=== PATIENT | male | born 1950 | race African-American/Black ===

== ENCOUNTER 2023-03-25 13:03 | Emergency (ER) | payer MEDICARE, SELFPAY ==
[2023-03-25 13:06] VITALS: BP 149/105; PULSE 68; RESP 14; TEMP 36.1; O2SAT 100
--- NOTE | 2023-03-25 13:21 | RAD_ITS ---
HISTORY: FALL. TECHNIQUE: XR Knee Complete 4 Views or More. COMPARISON: None. FINDINGS: BONES : No acute fracture identified. Old fracture of the proximal fibular diaphysis. JOINTS: No dislocation. Mild degenerative change. SOFT TISSUES: Mild soft tissue swelling. RAD/Knee 3 Views IMPRESSION: No acute fracture or dislocation identified in the left knee. Old fracture of the proximal fibula. Electronically Signed: Jessica Swanson MD at 14:01 EST ,
--- NOTE | 2023-03-25 15:01 | ED.VIS.LOWEX ---
HPI History of Present Illness Chief Complaint: Lower Extremity Injury Narrative Narrative: 72-year-old male presents with injury to his left knee that he sustained earlier today, prior to arrival. He states that he was inside and slipped on hardwood floor, trying to shrimp picker his dog. While he fell on his buttocks, his left leg went out towards the left. He twisted his left knee. He denies hitting his head or loss of consciousness. He now has pain on the medial aspect of his left knee. He denies other injury. He has been using his rollator to help him ambulate. [facility] Medical History Diabetes Allergy/AdvReac Type Severity Reaction Status Date / Time aspartame Allergy Mild PT UNSURE Verified 03/25/23 13:05 OF REACTION clonidine Allergy Mild LETHARGIC Verified 03/25/23 13:05 codeine AdvReac Mild Itching Verified 03/25/23 13:05 Social History Smoking Status: Unknown if ever smoked ROS ROS ED ROS Narrative Constitutional: No fever, no chills. HEENT: No sore throat. No neck pain. No loss of vision. No rhinorrhea. Cardiovascular: No chest pain. No palpitations. No pedal edema. Respiratory: No cough, no shortness of breath. Abdominal: No abdominal pain. No nausea. No vomiting. Genitourinary: No dysuria. No hematuria. Musculoskeletal: No myalgias. Left medial knee pain. Neurologic: No headaches. No dizziness. No lightheadedness. Skin: No rash. No change in color. Psychiatric: No depression. No anxiety. EXAM Physical Exam Narrative Exam Narrative: Afebrile. Vital signs noted. HEENT: Normocephalic. Atraumatic. PERRL, EOMI. Neck soft and supple. No point tenderness or step off. Cardiovascular: Regular rate and rhythm. No murmurs, rubs, or gallops appreciated. Respiratory: No tachypnea. Lungs clear to auscultation bilaterally. Gastrointestinal: Abdomen soft, nontender, with normoactive bowel sounds. No rebound or guarding. Neurological: Awake. Alert. Nonfocal, nonlateralizing. Skin: No rash. Normal color. No pallor. Musculoskeletal: No pedal edema. Full range of motion extremities. Extension left knee intact. Pain with external rotation and mild tenderness to palpation left medial meniscal line. Flexion extension of knee intact. Palpable dorsalis pedis pulse, left. EHL intact, left. Const Vital Signs: 03/25/23 13:06 Temperature 97.0 F L Temperature Source Temporal Pulse Rate 68 Respiratory Rate 14 Blood Pressure 149/105 H Blood Pressure Mean 119 Pulse Ox 100 Oxygen Delivery Method Room Air MDM MDM MDM Narrative Medical decision making narrative: Service for fracture of the tibial plateau versus ligamentous knee sprain. Also the differential is medial meniscal tear/internal derangement of left knee. RN ordered x-ray of the knee and 3 views was obtained and interpreted by myself independently and I see no evidence of effusion or fracture, no dislocation. There is a fibular head fracture noted on examination and review of the x-ray. I reviewed the radiology report which confirms my independent interpretation. As the patient has no evidence of fracture in the area where he is most tender, medially, I do feel that he can be placed in an Inderjit wrap and continue use of his rollator. He will take [id number] analgesics as needed. He was referred to orthopedics. In regard to his old fracture, he states he had a fall 2 years ago, and was having foot pain at that time. Return instructions to the emergency department were reviewed. Disposition is discharged home in stable condition. History & Record Review Discussion w/independent historian: Patient Radiography Diagnostic Testing: Clinical Impression(s) from Imaging Studies Knee X-Ray 03/25/23 13:21 IMPRESSION: No acute fracture or dislocation identified in the left knee. Old fracture of the proximal fibula. Electronically Signed: Jessica Swanson MD at 14:01 EST , Discharge Plan Triage Chief Complaint: Lower Extremity Injury ED Provider: Etienne Argueta Dx/Rx/DC Orders Clinical Impression: Left knee sprain, Fall Instructions: ED Mechanical Fall, ED Knee Sprain Primary Care Provider: Care Physician,No Primary Referrals: Pankaj Jerome MD [Med Staff - Active Staff] - 1 Week if not improving Care Physician,No Primary [Primary Care Provider] - Activity Restrictions/Additional Instructions: Continue [id number] medications like Tylenol or ibuprofen as needed for pain. Ice and elevate your left knee when possible. Follow-up with orthopedics in 1 week to 10 days if not improving. Disposition Disposition: Home, Self Care
[2023-03-25 15:20] VITALS: BP 145/95; PULSE 67; RESP 16; O2SAT 100
== END 2023-03-25 15:33 | disposition home or self-care (01) ==
PROVIDERS: Emergency Provider Emergency Medicine; Visit Provider Emergency Medicine
DX: S83.92XA Sprain of unspecified site of left knee, initial encounter (principal); W01.0XXA Fall on same level from slipping, tripping and stumbling without subsequent striking against object, initial encounter
CPT/HCPCS: 73562; 99282